=== PATIENT | male | born 1960 | race Caucasian/White ===

== ENCOUNTER 2019-12-17 10:48 | Emergency (ER) | payer OTHER, SELFPAY ==
--- NOTE | ~2019-12-17 | CT_ITS ---
EXAMINATION: CTA chest PE protocol DATE: 12/17/2019 15:17 INDICATION: Chest pain TECHNIQUE: Computed tomography (CT) pulmonary angiogram of the chest was performed with 100 mL Omnipa que-350 intravenous contrast. Additional 3D reconstructions utilizing coronal maximum intensity proje ction (MIP) were performed. Automated exposure control and iterative reconstruction technique were em ployed. The dose-length product was 988.69 mGy-cm. COMPARISON: None FINDINGS: Excellent contrast opacification of the pulmonary arteries. There is mild streak artifact from dense contrast in the superior vena cava and right atrium. Mild respiratory motion artifact at the lung bas es which does not significantly limit evaluation. No pulmonary embolism. Mild linear atelectasis in t he lingula and bilateral lower lobes. No pneumonia, pulmonary edema or other pulmonary infiltrates. H eart size is normal. No pericardial or pleural effusion. Thoracic aorta is normal in caliber with no evident dissection. No pathologically enlarged thoracic lymphadenopathy. Mild bilateral gynecomastia. Diffuse hepatic steatosis. There are bridging osteophytes at multiple levels in the spine, consisten t with diffuse idiopathic skeletal hyperostosis (DISH). IMPRESSION: 1. No pulmonary embolism or other acute cardiopulmonary disease. Reviewed, dictated and finalized at location A.
--- NOTE | ~2019-12-17 | XR_ITS ---
EXAMINATION: XR chest 2V DATE: 12/17/2019 11:43 INDICATION: Acute left chest pain. TECHNIQUE: Frontal and lateral views of the chest were obtained. COMPARISON: None. FINDINGS: The chest demonstrates clear lungs without pneumonia, pleural effusion, or pneumothorax. Th e heart size is normal. IMPRESSION: 1. No acute cardiopulmonary disease. Reviewed, dictated and finalized at location A.
--- NOTE | 2019-12-17 10:49 | ECG_ITS ---
Measurements Intervals [place] Rate: 51 P: -3 TN: 136 QRS: 0 QRSD: 87 T: 46 QT: 408 QTc: 378 Interpretive Statements SINUS BRADYCARDIA VENTRICULAR PREMATURE COMPLEX EARLY PRECORDIAL R/S TRANSITION BORDERLINE ECG Electronically Signed On 12-17-2019 11:30:22 CDT by Jovain Field D.O.
[2019-12-17 11:01] VITALS: BP 149/89; PULSE 55; RESP 22; TEMP 36.4; O2SAT 95
[2019-12-17 11:27] LABS: Blood Urea Nitrogen 31 mg/dL (9-20); Carbon Dioxide 23 mmol/L (22-30); Chloride 105 mmol/L (98-107); Estimated CRCL calculation 71 ml/min; Estimated Glomerular Filt Rate 45; Glucose 174 mg/dL (75-110); Potassium 4.8 mmol/L (3.4-5.0); Sodium 137 mmol/L (137-145)
[2019-12-17 11:28] LABS: Calcium 9.2 mg/dL (8.4-10.2)
[2019-12-17 11:44] LABS: Troponin I < 0.012 ng/mL (0.000-0.034)
[2019-12-17] MEDS: ASPIRIN 81 MG CHEWABLE TABLET 324 MG PO (11:56)
[2019-12-17 12:03] LABS: Hemoglobin 13.1 g/dL (14.0-18.0); White Blood Count 7.5 K/mm3 (4.5-10.0)
[2019-12-17 12:04] LABS: Hematocrit 40.5 % (42.0-52.0); Mean Corpuscular HGB Conc 32.3 g/dl (32-36); Mean Corpuscular Hemoglobin 29.8 pg (26-34); Mean Platelet Volume 10.7 fl (7.4-10.4); Platelet Count Result 194 k/mm3 (150-375); Red Cell Distribution Width 13.6 % (11.5-14.5)
[2019-12-17 12:07] LABS: Immature Granulocyte Percent A 0.3 % (0-0.5); Lymphocytes Percent Auto 21.5 % (18.3-44.2); Monocytes Percent Auto 9.2 % (2.6-8.5); Neutrophils Percent Auto 65.7 % (45.5-73.1)
[2019-12-17 12:08] LABS: Basophils Percent Auto 0.5 % (0.2-1.2); Eosinophils Absolute Auto 0.2 K/mm3 (0-0.3); Eosinophils Percent Auto 2.8 % (0-4.4); Immature Granulocyte Absolute 0.02 K/mm3 (0.00-0.031); Lymphocytes Absolute Auto 1.62 K/mm3 (0.9-3.2); Monocytes Absolute Auto 0.7 K/mm3 (0.1-0.6)
--- NOTE | 2019-12-17 12:23 | ED.CHESTPAIN ---
HPI - Chest Pain General Chief Complaint: Chest Pain Stated Complaint: CP, SOB Time Seen by Provider: 12/17/19 12:01 History of Present Illness HPI narrative: Patient is a 59-year-old male who presents ER with chest discomfort. Patient reports yesterday had 2 brief episodes of central chest discomfort that radiated around his right side into his back. He then went to work today and symptoms recurred around 8 AM. The symptoms have been constant since then. Mild central pressure that radiates around the right side to his back. Reports most of his pain is below his right scapula. Reports chest pain and scapular pain increased with twisting his body and occasionally with coughing. He has had no fevers or chills or sweats, he has some mild dyspnea with this, no hemoptysis. Patient has chronic lower extremity edema that reports worsens during the day when he is walking around but improves when he lays down at night. He had a surgery and March 2019 on her left foot but has had no other immobilization or surgeries. Patient has a gizzard puller to [place] by the name of Dr. Lazcano. He reports he had a cardiac catheterization several years ago that showed he was free of coronary disease and did not require any cardiac stenting. No known injury. No association with eating. Related Data Home Medications Medication Instructions Recorded Confirmed acebutolol mg 12/17/19 aspirin [Aspir-81] 12/17/19 chlorthalidone 12/17/19 diclofenac sodium 75 mg PO BID 12/17/19 12/17/19 ezetimibe mg 12/17/19 gabapentin 12/17/19 icosapent ethyl [Vascepa] g PO 12/17/19 levothyroxine 100 mcg PO DAILY 12/17/19 12/17/19 losartan 12/17/19 omeprazole 12/17/19 rosuvastatin 20 mg PO DAILY 12/17/19 12/17/19 spironolactone 12/17/19 Allergies Allergy/AdvReac Type Severity Reaction Status Date / Time No Known Allergies Allergy Verified 12/17/19 11:40 Review of Systems Review of Systems: All systems reviewed & are unremarkable except as noted in HPI and below Constitutional: Constitutional: Denies chills, Denies fever(s) and Denies weakness ENT: Denies dizziness, Denies nasal congestion and Denies sore throat Cardiovascular: Cardiovascular: Reports chest pain and Denies radiating jaw, neck or arm pain Respiratory: Respiratory: Denies cough, Reports dyspnea and Denies wheezing Gastrointestinal: Gastrointestinal: Denies abdominal pain, Denies nausea and Denies vomiting Musculoskeletal: Musculoskeletal: Reports back pain, Denies joint swelling and Denies muscle cramps Comments: chronic lower extremity edema. [facility] Past Medical History Medical History (Updated 12/17/19 @ 15:36 by Zelalem Segovia MD) Degenerative arthritis of knee GERD (gastroesophageal reflux disease) Hyperlipidemia Hypertension Hypothyroidism Surgical History Surgical History (Updated 12/17/19 @ 12:29 by Zelalem Segovia MD) H/O foot surgery Social History Social History Gender identity (if verbalized by the patient): Male Exam Narrative: Exam Narrative: GENERAL: Well-appearing, well-nourished, and in no acute distress. HEAD: Normocephalic, atraumatic. CHEST: Clear to auscultation. No respiratory distress. No tenderness to palpation anterior chest wall. HEART: Bradycardic and regular. Normal peripheral pulses. ABDOMEN: Soft, nontender, nondistended, normal active bowel sounds. EXTREMITIES: Normal range of motion. 2+ edema. Back: Muscular tenderness inferior to right scapula that reproduces patient's pain. No midline tenderness. No evidence of trauma. SKIN: Warm, dry, no rash. NEURO: Alert and oriented x3. PSYCH: Normal mood and affect. Course Course Emergency Course: Chest pain-free with Toradol. Informed of results. Discharge home. Vital Signs Vital signs: Vital Signs Temperature 97.5 F L 12/17/19 11:01 Pulse Rate 55 L 12/17/19 11:01 Respiratory Rate 22 H 12/17/19 11:01 Blood Pressure 149/89 H 12/17/19 11:01 Pulse Oxim
[2019-12-17] MEDS: KETOROLAC 30 MG/ML VIAL (*BKC) IV PUSH (13:03)
[2019-12-17 13:36] VITALS: BP 142/102; PULSE 48; RESP 13; O2SAT 95
[2019-12-17 14:12] LABS: Partial Thromboplastin Time 26.1 SECONDS (22.3-36.8); Prothrombin Time 12.6 Seconds (11.1-14.7)
[2019-12-17 14:24] LABS: Troponin I < 0.012 ng/mL (0.000-0.034)
[2019-12-17 14:57] LABS: D Dimer 1.37 ug/mL (<0.48)
[2019-12-17 15:02] VITALS: BP 142/85; PULSE 48; RESP 12; O2SAT 99
== END 2019-12-17 15:47 | disposition home or self-care (01) ==
PROVIDERS: Emergency Medicine; Emergency Provider Emergency Medicine; PCP Emergency Medicine
DX: R07.89 Other chest pain (principal); M17.10 Unilateral primary osteoarthritis, unspecified knee; E78.5 Hyperlipidemia, unspecified; I10 Essential (primary) hypertension; E03.9 Hypothyroidism, unspecified; R00.1 Bradycardia, unspecified; I49.3 Ventricular premature depolarization
CPT/HCPCS: 36415; 71046; 71275; 80048; 84484; 85025; 85380; 85610; 85730; 93005; 96374; 99284; A9270; J1885; Q9967

== ENCOUNTER 2023-01-29 23:09 | Emergency (ER) | payer MEDICARE, SELFPAY ==
[2023-01-29 23:12] VITALS: BP 178/51; PULSE 55; RESP 14; TEMP 37; O2SAT 97
[2023-01-30 00:56] VITALS: BP 151/64; PULSE 54; RESP 20; TEMP 36.4; O2SAT 98
--- NOTE | 2023-01-30 02:23 | ED.GENADULT ---
HPI - General Adult General Chief complaint: Skin/Abscess/Foreign Body Stated complaint: infection in R lower leg? Time Seen by Provider: 01/30/23 02:01 Source: patient Mode of arrival: ambulatory Limitations: no limitations History of Present Illness HPI narrative: This is a 62-year-old male who presents to the ED with chief complaint of right lower extremity redness and pain for the past 3 days. He states initially at the time of onset he did have some fevers but these have since resolved. He states is actually becoming less painful. He has been trying topical antibiotics. Denies any nausea or vomiting. He states he has history of prediabetes but his sugars have been under control. He states he had a recent spider bite around the ankle which could have set this off. Denies any further site of pain or injury. Related Data Home Medications Medication Instructions Recorded Confirmed acebutolol 200 mg capsule mg 12/17/19 aspirin 81 mg tablet,delayed 12/17/19 release (Aspir-) chlorthalidone 25 mg tablet 12/17/19 diclofenac sodium 75 mg 75 mg PO BID 12/17/19 12/17/19 tablet,delayed release ezetimibe 10 mg tablet mg 12/17/19 gabapentin 300 mg capsule 12/17/19 icosapent ethyl 1 gram capsule g PO 12/17/19 (Vascepa) levothyroxine 100 mcg tablet 100 mcg PO DAILY 12/17/19 12/17/19 losartan 50 mg tablet 12/17/19 omeprazole 20 mg capsule,delayed 12/17/19 release rosuvastatin 20 mg tablet 20 mg PO DAILY 12/17/19 12/17/19 spironolactone 50 mg tablet 12/17/19 Allergies Allergy/AdvReac Type Severity Reaction Status Date / Time No Known Allergies Allergy Verified 12/17/19 11:40 [facility] Past Medical History Medical History (Updated 01/30/23 @ 02:25 by Nic Rincon PA-C) Degenerative arthritis of knee GERD (gastroesophageal reflux disease) Hyperlipidemia Hypertension Hypothyroidism Surgical History Surgical History (Updated 12/17/19 @ 12:29 by Zelalem Segovia MD) H/O foot surgery Social History Social History Gender identity (if verbalized by the patient): Male Exam Narrative: GENERAL: Well-appearing, well-nourished, and in no acute distress. HEAD: Normocephalic, atraumatic. EYES: PERRLA and EOMI. ENT: Nares clear, no rhinorrhea or epistaxis. Mucous membranes moist. Oropharynx without tonsillar hypertrophy exudate or other lesions. NECK: Supple. No adenopathy or masses. CHEST: No respiratory distress. Clear to auscultation. No wheezes rales or rhonchi HEART: Regular rate and rhythm. No murmur heard. Normal peripheral pulses. ABDOMEN: Soft, nontender, nondistended, normal active bowel sounds. MSK: Normal range of motion. No edema. SKIN: Right lower extremity with erythema throughout the anterior connell and medial calf. No open lesions or drainage. Mild warmth, minimal tenderness. NEURO: Alert and oriented x3. No focal deficits. PSYCH: Normal mood and affect. Course Vital Signs Vital signs: Vital Signs Temperature 98.6 F 01/29/23 23:12 Pulse Rate 55 L 01/29/23 23:12 Respiratory Rate 14 01/29/23 23:12 Blood Pressure 178/51 H 01/29/23 23:12 Pulse Oximetry 97 01/29/23 23:12 Oxygen Delivery Room Air 01/29/23 23:12 Temperature 97.5 F L 01/30/23 00:56 Pulse Rate 57 L 01/30/23 02:30 Respiratory Rate 17 01/30/23 02:30 Blood Pressure 144/81 H 01/30/23 02:30 Pulse Oximetry 98 01/30/23 02:30 Oxygen Delivery Room Air 01/30/23 00:56 Medical Decision Making [facility] Narrative Medical decision making narrative: This is a 62-year-old male who presents to the ED with chief complaint of right lower extremity skin erythema and tenderness. Vitals are normal. Afebrile. He does have evidence of cellulitis to the right lower extremity. He does not have history of diabetes. Well score -2 blood clot. Feel his symptoms are much more likely consistent with cellulitis as he had recent fevers. Prescription for doxycycline given. His first dose
[2023-01-30 02:30] VITALS: BP 144/81; PULSE 57; RESP 17; O2SAT 98
[2023-01-30] MEDS: DOXYCYCLINE HYCLATE 100 MG TABLET PO (02:37)
== END 2023-01-30 02:53 | disposition home or self-care (01) ==
PROVIDERS: Emergency Provider Physician Assistant; PCP Internal Medicine
DX: L03.115 Cellulitis of right lower limb (principal); I10 Essential (primary) hypertension; E78.5 Hyperlipidemia, unspecified; E03.9 Hypothyroidism, unspecified; K21.9 Gastro-esophageal reflux disease without esophagitis; Z79.82 Long term (current) use of aspirin
CPT/HCPCS: 99283; A9270

== ENCOUNTER 2025-04-19 14:37 | Emergency (ER) | payer MEDICARE, SELFPAY ==
--- NOTE | 2025-04-19 14:39 | ED_ITS ---
HPI - Wound/Laceration General Chief Complaint: Wound/Laceration Stated Complaint: L leg laceration Time Seen by Provider: 04/19/25 14:49 Source: patient, RN notes reviewed and old records reviewed Mode of arrival: ambulatory Limitations: no limitations History of Present Illness HPI narrative: 64-year-old male presents to the [facility] with a skin tear to the left lower anterior medial aspect the leg. Not on blood thinners. Unknown last Tdap. Patient states that the removing, hit a wooden shelf and causing injury to the lower leg. Bleeding is well controlled. Treatments prior to arrival: bandage Related Data Home Medications ?Medication ?Instructions ?Recorded ?Confirmed ?Last Taken ?Type chlorthalidone 25 mg tablet 12/17/19 Unknown History ezetimibe 10 mg tablet mg 12/17/19 Unknown History gabapentin 300 mg capsule 12/17/19 Unknown History levothyroxine 100 mcg tablet 100 mcg PO DAILY 12/17/19 12/17/19 Unknown History losartan 50 mg tablet 12/17/19 Unknown History rosuvastatin 20 mg tablet 20 mg PO DAILY 12/17/1911/01 Unknown History bupropion HCl 300 mg 24 hr tablet, mg PO 04/19/25 Unk nown History extended release ferrous sulfate 325 mg (65 mg mg 04/19/25 Unknown His tory iron) tablet hydrocodone 10 mg-acetaminophen tablet 04/19/25 Unkno wn History 325 mg tablet losartan 100 mg tablet mg 04/19/25 Unknown History semaglutide 1 mg/dose (4 mg/3 mL) mg subcut 04/19/25 Unknown History subcutaneous pen injector (Ozempic) Allergies Allergy/AdvReac Type Severity Reaction Status Date / Time Penicillins Allergy Swelling Verified 04/19/25 14:52 Review of Systems Review of Systems: All systems reviewed & are unremarkable except as noted in HPI and below Constitutional: Constitutional: Reports no additional constitutional complaints Cardiovascular: Cardiovascular: Reports no additional cardiovascular complaints, Denies chest pain and Denies dyspnea Respiratory: Respiratory: Reports no additional respiratory complaints, Denies chest congestion, Denies cough and Denies dyspnea Musculoskeletal: Musculoskeletal: Reports no additional musculoskeletal complaints Integumentary/Breasts: Skin/Breast: Reports as per HPI [facility] Past Medical History Medical History Degenerative arthritis of knee GERD (gastroesophageal reflux disease) Hypothyroidism Hyperlipidemia Hypertension Surgical History Surgical History H/O foot surgery Social History Social History Gender identity (if verbalized by the patient): Male Comments At the time of my signature, I reviewed and agree with the nursing past medical, surgical, social, and family history. There is no relevant family history pertinent to the patient complaint. Exam Const: General: cooperative, healthy appearing, comfortable, no acute distress, well developed, alert and well nourished Nutritional Appearance: well nourished and obese Orientation/consciousness: patient oriented x3 Limitations: no limitations HENMT: Head: normal to inspection Eyes: General: appearance normal, both eyes and all related structures Alignment and Position: alignment normal Neck: Neck: normal visual inspection, full ROM, no lymphadenopathy and no meningeal signs Chest: Chest palpation & inspection: normal inspection of the chest Resp: Effort & Inspection: normal respiratory effort and able to speak in complete sentences Cardio: Rate: regular rate Skin: General skin exam: normal color and no rashes or lesions noted Wounds: wounds noted tear left lower leg size (5.5) and without odor; without any surrounding erythema Neuro: General: patient oriented x3, gait normal, moves all extremities and no meningeal signs Cognition (Neuro): normal cognition Speech: normal speech Gait exam (Neuro): Normal gait present Extrem: General: normal to inspection, full ROM, capillary refill normal and normal gait Psych: Appearance: grossly normal and well kempt Mental Status: mental status grossly normal Speech and movement: Normal speech and movement present and Clear speech present Affect: normal affect Attitude: cooperative Course Course Emergency Course: Area cleaned, irrigated with 200 mils of saline. No foreign bodies, bleeding is controlled. Use Steri-Strips and approximated wound best as possible. Discussed risks of infection, keeping it clean and dry. Level of Care: Express Care Visit Vital Signs Vital signs: Vital Signs Temperature 97.9 F 04/19/25 14:49 Pulse Rate 66 04/19/25 14:49 Respiratory Rate 18 04/19/25 14:49 Blood Pressure 115/65 04/19/25 14:49 Pulse Oximetry 97 04/19/25 14:49 Oxygen Delivery Room Air 04/19/25 14:49 Temperature 97.9 F 04/19/25 14:49 Pulse Rate 66 04/19/25 14:49 Respiratory Rate 18 04/19/25 14:49 Blood Pressure 115/65 04/19/25 14:49 Pulse Oximetry 97 04/19/25 14:49 Oxygen Delivery Room Air 04/19/25 14:49 Reviewed MDM - Wound/Laceration MDM Narrative Medical decision making narrative: Patient sitting in exam room. Patient is nontoxic, vitals stable. Patient with a skin tear to the left lower leg. Patient unknown last Tdap updated. Area of skin tear approximated with Steri-Strips Patient is appropriate for outpatient treatment with close follow-up Discharge instructions reviewed with patient, as well as provided in writing per nursing staff. The instructions also include specific and strict return/GO TO THE ER as well as f/u information. All questions have been answered, and the patient deny any further questions with discharge and discharge plan. Some parts of this dictation were generated by voice recognition software and may contain typographical and/or grammatical inaccuracies. Differential Diagnosis Differential diagnosis: Likely laceration, abscess, abrasion and avulsion of skin Critical Care Time Critical Care Time Critical Care Time: No Discharge Plan Discharge Clinical Impression: Vaccine for [id number], combined Skin tear of left lower leg without complication Qualifiers: Encounter type: initial encounter Qualified Code(s): S81.812A - Laceration without foreign body, left lower leg, initial encounter Patient Disposition: Home Condition: Stable Instructions: Skin Tear (ED) Additional Instructions: Wash area twice a day with warm soapy water. Pat dry. When not at home keep it covered After 3 days you can apply a scant amount bacitracin The skin tears do take a couple of weeks to heal. Is important to keep them clean and dry. Follow-up with primary care provider in 1 week for a wound check For new or worsening symptoms go directly to the emergency room Patient Language: Algerian Prescriptions: No Action bupropion HCl 300 mg tablet extended release 24 hr PO hydrocodone-acetaminophen 10-325 mg tablet ferrous sulfate 325 mg (65 mg iron) tablet losartan 100 mg tablet Ozempic 1 mg/dose (4 mg/3 mL) pen injector SUBCUT losartan 50 mg tablet chlorthalidone 25 mg tablet levothyroxine 100 mcg Tablet 100 mcg PO DAILY gabapentin 300 mg capsule ezetimibe 10 mg tablet rosuvastatin 20 mg Tablet 20 mg PO DAILY Time of Disposition: 15:06
[2025-04-19 14:49] VITALS: BP 115/65; PULSE 66; RESP 18; TEMP 36.6; O2SAT 97
[2025-04-19] MEDS: TETANUS,DIPHTHERIA,AC PERTUSSIS ADULT (0.5 ML) BOOSTRIX IM (15:01)
[2025-04-19] MEDS: BENZOIN TINCTURE 1 APPLIC TOPICAL (15:07)
== END 2025-04-19 15:15 | disposition home or self-care (01) ==
PROVIDERS: Emergency Provider Nurse Practitioner; PCP Anesthesiology
DX: S81.812A Laceration without foreign body, left lower leg, initial encounter (principal); W22.8XXA Striking against or struck by other objects, initial encounter; Z23 Encounter for immunization; I10 Essential (primary) hypertension; E78.5 Hyperlipidemia, unspecified; E03.9 Hypothyroidism, unspecified; K21.9 Gastro-esophageal reflux disease without esophagitis
CPT/HCPCS: 90471; 90715; 99212; A9270; G0463